=== PATIENT | male | born 1965 | race Caucasian/White ===

== ENCOUNTER 2019-05-04 15:31 | Inpatient (IN) ==
[2019-05-04] MEDS ORDERED: FLU VACCINE IM ONE (17:47)
[2019-05-04] MEDS ORDERED: DESYREL PO PRN (17:50)
[2019-05-04] MEDS ORDERED: ATARAX PO PRN (17:50)
[2019-05-04] MEDS ORDERED: TUBERSOL ID ONE (17:50)
[2019-05-04] MEDS ORDERED: LIBRIUM PO PRN (17:50)
[2019-05-04] MEDS ORDERED: D5W 1,000 ML IV PRN (17:50)
[2019-05-04] MEDS ORDERED: PHENOBARBITAL IV PRN (17:50)
[2019-05-04] MEDS ORDERED: SENOKOT PO PRN (17:50)
[2019-05-04] MEDS ORDERED: DULCOLAX PR PRN (17:50)
[2019-05-04] MEDS ORDERED: SINEMET 25/100 PO PRN (17:50)
[2019-05-04] MEDS ORDERED: ZOFRAN IV PRN (17:50)
[2019-05-04] MEDS ORDERED: IMODIUM PO PRN (17:50)
[2019-05-04] MEDS ORDERED: BENTYL PO PRN (17:50)
[2019-05-04] MEDS ORDERED: MOTRIN PO PRN (17:50)
[2019-05-04] MEDS ORDERED: MAALOX PLUS LIQUID PO PRN (17:50)
[2019-05-04] MEDS ORDERED: ROBAXIN PO PRN (17:50)
[2019-05-04] MEDS ORDERED: NICODERM PATCH TD PRN (17:50)
[2019-05-04 18:34] LABS: URINE SOURCE VOIDED
[2019-05-04] MEDS: LIBRIUM PO SCH ×2 (18:36→23:31)
[2019-05-04] MEDS: TYLENOL PO PRN ×2 (18:36→21:55)
[2019-05-04 18:38] LABS: BILIRUBIN URINE NEGATIVE (NEGATIVE); BLOOD URINE NEGATIVE (NEGATIVE); CLARITY CLEAR (CLEAR); COLOR YELLOW; GLUCOSE URINE NEGATIVE (NEGATIVE); KETONE URINE NEGATIVE (NEGATIVE); LEUKOCYTES URINE NEGATIVE (NEGATIVE); NITRITE URINE NEGATIVE (NEGATIVE); PROTEIN URINE NEGATIVE (NEGATIVE); SP GRAVITY URINE 1.015; UROBILINOGEN URINE NORMAL
[2019-05-04 18:40] LABS: HEMATOCRIT 39.7 % (42.0-52.0); HEMOGLOBIN 13.5 g/dL (14.0-18.0); MCH 30.4 PG (27-31); MCV 89.4 FL (81-99); MPV 8.9 FL (7.4-10.4); RBC 4.44 XMIL (4.7-6.1); RDW 13.8 % (11.5-14.5); WBC 7.04 X1000 (4.8-10.8)
[2019-05-04 18:50] LABS: UR AMPHETAMINES QUAL NONE DETECTED (NONE DETECT); UR BARBITUATES QUAL NONE DETECTED (NONE DETECT); UR BENZODIAZEPIN QUAL NONE DETECTED (NONE DETECT); UR CANNABINOIDS QUAL NONE DETECTED (NONE DETECT); UR COCAINE QUAL NONE DETECTED (NONE DETECT); UR METHADONE QUAL NONE DETECTED (NONE DETECT); UR METHAMPHETAMINE QUAL NONE DETECTED (NONE DETECT); UR OPIATES QUAL NONE DETECTED (NONE DETECT); UR OXYCODONE QUAL PRESUMPTIVE POSITIVE (NONE DETECT); UR PCP QUAL NONE DETECTED (NONE DETECT); UR PROPOXYPHENE QUAL NONE DETECTED (NONE DETECT); UR TCA QUAL NONE DETECTED (NONE DETECT)
[2019-05-04 18:54] LABS: AMYLASE 49 U/L (20-200); LIPASE 17 U/L (13-60)
[2019-05-04 18:58] LABS: AGAP 8; ALBUMIN 4.8 g/dL (3.5-5.0); ALKALINE PHOSPHATASE 93 U/L (32-122); BUN 17 mg/dL (8-22); CALCIUM 9.8 mg/dL (8.8-10.2); CHLORIDE 102 mmol/L (98-107); COSMO 279; ESTIMATED GFR > 60; GLUCOSE 92 mg/dL (70-104); GOT 22 U/L (10-34); GPT 24 U/L (10-44); POTASSIUM 4.6 mmol/L (3.5-5.1); SODIUM 139 mmol/L (136-145); TCO2 28 mmol/L (25-35); TOTAL PROTEIN 7.5 g/dL (6.3-8.3)
[2019-05-04 19:12] LABS: INR 0.9; PROTIME 12.6 Seconds (11.0-16.0)
[2019-05-04] MEDS: ZOFRAN ODT PO PRN (22:00)
[2019-05-05] MEDS: PROTONIX PO SCH (06:23)
[2019-05-05] MEDS: LIBRIUM PO SCH ×3 (06:23→18:11)
[2019-05-05] MEDS ORDERED: SUBOXONE 2 MG/0.5 MG FILM SL PRN (07:25)
[2019-05-05] MEDS: VITAMIN B-1 PO SCH (09:18)
[2019-05-05] MEDS: THERA M PLUS PO SCH (09:18)
[2019-05-05] MEDS: FOLIC ACID PO SCH (09:18)
[2019-05-06] MEDS: TYLENOL PO PRN (00:08)
[2019-05-06] MEDS: LIBRIUM PO SCH ×4 (01:21→19:36)
[2019-05-06] MEDS: PROTONIX PO SCH (06:10)
[2019-05-06] MEDS: THERA M PLUS PO SCH (11:21)
[2019-05-06] MEDS: VITAMIN B-1 PO SCH (11:21)
[2019-05-06] MEDS: FOLIC ACID PO SCH (11:21)
[2019-05-06] MEDS: ZOFRAN ODT PO PRN (17:05)
[2019-05-06] MEDS: ZOLOFT PO SCH (17:22)
[2019-05-06] MEDS ORDERED: ZOLOFT PO SCH (21:00)
[2019-05-07] MEDS: LIBRIUM PO SCH ×4 (01:09→20:40)
[2019-05-07] MEDS: PROTONIX PO SCH (06:29)
[2019-05-07] MEDS: ZOLOFT PO SCH (08:55)
[2019-05-07] MEDS: THERA M PLUS PO SCH (08:55)
[2019-05-07] MEDS: VITAMIN B-1 PO SCH (08:55)
[2019-05-07] MEDS: FOLIC ACID PO SCH (08:55)
[2019-05-07] MEDS: SEROQUEL PO PRN (20:40)
[2019-05-07] MEDS: TYLENOL PO PRN (20:40)
[2019-05-08] MEDS: TYLENOL PO PRN (00:19)
[2019-05-08] MEDS: PROTONIX PO SCH (06:31)
[2019-05-08] MEDS: VITAMIN B-1 PO SCH (10:15)
[2019-05-08] MEDS: FOLIC ACID PO SCH (10:15)
[2019-05-08] MEDS: LIBRIUM PO SCH ×3 (10:15→21:13)
[2019-05-08] MEDS: THERA M PLUS PO SCH (10:15)
[2019-05-08] MEDS: ZOLOFT PO SCH (10:15)
[2019-05-08] MEDS: TORADOL IV PRN ×2 (10:35→18:49)
[2019-05-09] MEDS: TORADOL IV PRN ×4 (00:27→23:36)
[2019-05-09] MEDS: SEROQUEL PO PRN (00:27)
[2019-05-09] MEDS: PROTONIX PO SCH (06:55)
[2019-05-09] MEDS: VITAMIN B-1 PO SCH (10:53)
[2019-05-09] MEDS: LIBRIUM PO SCH ×2 (10:53→21:12)
[2019-05-09] MEDS: FOLIC ACID PO SCH (10:53)
[2019-05-09] MEDS: THERA M PLUS PO SCH (10:53)
[2019-05-09] MEDS: ZOLOFT PO SCH (10:53)
[2019-05-09 19:46] VITALS: BP 138/84
[2019-05-09] MEDS: TYLENOL PO PRN (21:11)
[2019-05-10] MEDS: PROTONIX PO SCH (06:44)
[2019-05-10] MEDS: TORADOL IV PRN (06:53)
[2019-05-10] MEDS ORDERED: PNEUMOVAX 23 IM ONE (08:46)
[2019-05-10] MEDS: THERA M PLUS PO SCH (09:37)
[2019-05-10] MEDS: LIBRIUM PO SCH (09:37)
[2019-05-10] MEDS: ZOLOFT PO SCH (09:37)
[2019-05-10] MEDS: FOLIC ACID PO SCH (09:37)
[2019-05-10] MEDS: VITAMIN B-1 PO SCH (09:37)
== END 2019-05-10 11:14 | disposition home or self-care (01) ==
LOC: P.DIRADM 16:27 → P.MEDSURG 16:45
PROVIDERS: ADMIT Family Medicine; ATTEND Family Medicine